=== PATIENT | male | born 1965 | race Caucasian/White ===

== ENCOUNTER 2016-07-22 19:11 | Emergency (ER) | payer OTHER ==
[~2016-07-22] VITALS: Ht 180.3 cm; Wt 105.3 kg
[~2016-07-22 19:11] MED LIST: ADVAIR 250/501 DISK IH; PRILOSEC OTC20 M1 PO; SINGULAIR10 MG PO; UROXATRAL10 MG PO
[2016-07-22 19:55] LABS: HEMATOCRIT 43.8 % (38.0-50.0); MCH 28.2 PG (29.0-34.0); MCHC 34.2 G/DL (30.0-36.0); MCV 82.5 FL (86-99); MEAN PLAT.VOLUME 10.9 uM^3 (9.0-12.4); PLATELET COUNT 263 K/uL (156-360); RBC DIS.WIDTH-SD 39.1 % (39-53); RED BLOOD COUNT 5.31 M/uL (4.00-5.50); WHITE BLOOD COUNT 10.4 K/uL (4.1-10.2)
[2016-07-22 20:06] LABS: CHLORIDE 107 mEq/L (99-109); POTASSIUM 3.9 mEq/L (3.7-5.4); SODIUM 142 mEq/L (136-147)
[2016-07-22 20:07] LABS: GLUCOSE 138 mg/dL (70-99)
[2016-07-22 20:09] LABS: ANION GAP 14 MEQ/L (2-14)
[2016-07-22 20:11] LABS: GFR ESTIMATE (CALCULATED) > 59 mL/min/
[2016-07-22 20:12] LABS: UREA NITROGEN (BUN) 15 mg/dL (9-23)
[2016-07-22 21:40] LABS: ADD MIUA? YES; BILIRUBIN NEGATIVE; BLOOD MODERATE; COLOR YELLOW ((YELLOW)); GLUCOSE (STRIP) NEGATIVE; KETONES 5; LEUKOCYTES NEGATIVE; NITRITE NEGATIVE; PROTEIN (STRIP) 100; SPECIFIC GRAVITY 1.013 (1.000-1.030); UROBILINOGEN 0.2 MG/DL (0.2-1.0)
[2016-07-22] MEDS ORDERED: PERCOCET 5/31 TABLET PO (22:05)
[2016-07-22] MEDS ORDERED: ZOFRAN4 MG PO (22:05)
[2016-07-22] MEDS ORDERED: MOTRIN600 MG PO (22:05)
[2016-07-22 22:35] VITALS: BP 138/112
[2016-07-22 22:46] LABS: BACTERIA NONE SEEN /HPF; EPITHELIAL CELLS NONE SEEN /HPF; MUCUS TRACE /LPF; RED BLOOD CELLS 20-30 /HPF (0-5); UCUL ADDED? NO; WHITE BLOOD CELLS 0-5 /HPF (0-5)
== END 2016-07-22 22:52 | disposition home or self-care (01) ==
LOC: EME 19:11
DX: R10.31 Right lower quadrant pain (principal); M54.5 Low back pain; R31.9 Hematuria, unspecified; N13.30 Unspecified hydronephrosis; J45.909 Unspecified asthma, uncomplicated; K21.9 Gastro-esophageal reflux disease without esophagitis
CPT/HCPCS: 74176; 80048; 81003; 85027; 99281; 99285; J1885; J2270; J2405; J3010; J7030